=== PATIENT | female | born 1970 | race Caucasian/White ===

== ENCOUNTER 2024-01-21 09:59 | Emergency (ER) | payer BC, SELFPAY ==
[2024-01-21 10:17] VITALS: BP 165/77
--- NOTE | 2024-01-21 10:58 | ED.GENMED ---
History of Present Illness
General
Chief Complaint: Chest Pain
Source: patient
Exam Limitations: none
Time Seen by Provider: 01/21/24 10:43
Travel History
Have you had any contact with someone who has COVID-19?: No
Do you have any symptoms of coronavirus? Fever > 100 degrees, chills, cough, shortness of breath, sore throat, loss of taste or smell, muscle aches, or headache?: No
History of Present Illness
History of Present Illness:
53-year-old female presents complaining of onset of mid back pain and substernal chest pain that started early this morning. Hurts to move and breathe. She denies any shortness of breath. No recent travel or surgery. No fever or cough. No known
injury. Seen initially at the urgent care and sent here for further evaluation.
Past History
Past History
ED Past Medical History: Hypothyroidism (s/p total thyroidectomy)
ED Past Surgical History: Gynecological (tubal ligation) and Other (total thyroidectomy 2 yrs ago)
Social History
Tobacco: Non-smoker
Alcohol: Occasional
Drug: None
Personal:
Living: with family
Employment: Employed
Family History
Family History: Hypertension; Negative Diabetes, Early CAD, CAD or Sudden
Phy Exam
Physical Exam
Physical Exam:
Physical Exam
General: no apparent distress, not acutely ill
Neck: supple. no meningeal signs.
Heart: s1/s2 regular rate and rhythm, no murmur. equal radial pulses.
Lungs: no acute respiratory distress. clear bilaterally
Abdomen: normal bowel sounds
Neuro: alert and oriented. no focal neurological deficits
Skin: no rash
Psychiatric: well kept. interactive and cooperative
Extremities: no edema. no calf tenderness. negative homans. good distal pulses
Scores
Heart Score for Chest Pain Patients
STEMI patient?: No
History: Slightly or Non-Suspicious
ECG: Normal
Age: >45 - <65 years
Risk Factors: 1 or 2 Risk Factors
Troponin: </= Normal Limit
Heart Score for Chest Pain Patients: 2
Heart Score Risk: 2.5% MACE over next 6 weeks
Course
Orders/Labs/Results
Orders:
Orders
01/21/24 10:01
Electrocardiogram (*1) Urgent
Reason for Study: Chest Pain
EKG- Treatment ONCE
01/21/24 11:30
Complete Blood Count/With Diff Urgent
Comprehensive Metabolic Panel Urgent
D-Dimer Urgent
Lipase Urgent
Troponin I Urgent
01/21/24 11:58
CR Chest - 2 Views Urgent
Comment:
Reason For Exam: chest pain
Abnormal Lab Results
01/21/24
11:30
MCHC 32.5 L g/dL
(33.0-37.0)
RDW 16.3 H %
(11.5-14.5)
MPV 12.4 H fL
(7.4-10.4)
Absolute Lymphs (auto) 0.9 L 10^3/uL
(1.2-3.4)
Lymphocytes % 18.6 L %
(20.5-51.1)
Chloride 108 H mmol/L
(98-107)
01/21/24 11:30
01/21/24 11:30
Vital Signs
Initial and Last Documented VS:
Initial Vital Signs
Temp Pulse Resp BP Pulse Ox
98.1 F 74 18 165/77 97
01/21/24 10:17 01/21/24 10:17 01/21/24 10:17 01/21/24 10:17 01/21/24 10:17
Last Documented Vital Signs
Temp Pulse Resp BP Pulse Ox
98.1 F 74 18 165/77 97
01/21/24 10:17 01/21/24 10:17 01/21/24 10:17 01/21/24 10:17 01/21/24 10:17
MDM/Problems Addressed
Differential Diagnosis Includes:
Back and chest pain. This is reproducible with motion but also hurts to breathe. Consider musculoskeletal chest wall pain versus PE versus ACS. EKG through triage shows sinus rhythm without ischemic changes. Will check D-dimer labs including
troponin and lipase. Will image based on D-dimer results.
*Critical Care Note
Total Time (30-74mins, 75-104mins- exclusive of procedures): Not Applicable
Update Note
Update Note:
D-dimer and troponin both undetectable. Lipase normal chest x-ray clear. Patient's pain is reproducible with motion. Suspect likely chest wall discomfort. Will refer to cardiology for further evaluation. Stable for discharge
ED Attending Note
-
Portions of this chart may have been created with voice recognition software.� Occasional wrong word or��sound alike� substitutions may have occurred due to the inherent limitations of voice recognition software.
Discharge Plan
Departure
Patient Disposition: Home (Routine Discharge)
Date of Disposition: 01/21/24
Time of Disposition: 13:30
Patient with high blood pressure during this ER visit?: No
Discharge Problem:
Chest pain
Instructions: Chest Pain DCA Follow Up
Referrals:
Obie Bailon MD [Family Provider] -
Activity Restrictions/Additional Instructions:
Continue with ibuprofen or Tylenol for pain. Return for worsening symptoms otherwise follow-up with family doctor and/or general laborer
Interventions
Interventions:
*Risk Screen - Suicide Last Done: 01/21/24 10:20
*General Assessment Last Done: 01/21/24 10:20
*Neglect/Abuse Screening Last Done: 01/21/24 10:20
*ED COVID-19 Vaccine History Last Done: 01/21/24 11:28
ED- Cardiac Assessment Last Done: 01/21/24 11:37
[2024-01-21 11:35] VITALS: BP 129/79
[2024-01-21 11:55] LABS: D-Dimer < 0.27 ug/mlFEU (0.00-0.50)
[2024-01-21 11:59] LABS: ALT (SGPT) 23 U/L (0-35); AST (SGOT) 27 U/L (14-36); Albumin 4.6 g/dl (3.5-5.0); Alkaline Phosphatase 113 U/L (38-126); Blood Urea Nitrogen 13 mg/dl (7-17); Calcium 9.3 mg/dl (8.4-10.2); Carbon Dioxide 27 mmol/L (22-30); Chloride 108 mmol/L (98-107); Glucose 99 mg/dl (70-99); Lipase 71 U/L (23-300); Potassium 3.8 mmol/L (3.5-5.1); Sodium 141 mmol/L (135-145); Total Bilirubin 0.9 mg/dl (0.2-1.3); Total Protein 7.3 g/dl (6.3-8.2); eGFR > 60.00
[2024-01-21 12:00] VITALS: BP 128/70
[2024-01-21 12:00] LABS: % Basophils 0.2 % (0-2); % Eosinophils 2.2 % (0-6); % Immature Granulocytes 0.2 % (0-0.5); % Lymphocytes 18.6 % (20.5-51.1); % Monocytes 5.3 % (1.7-9.3); % Neutrophils 73.5 % (42.2-75.2); Absolute Eosinophils 0.1 10^3/uL (0-0.7); Absolute Lymphocytes 0.9 10^3/uL (1.2-3.4); Absolute Monocytes 0.3 10^3/uL (0.1-0.6); Absolute Neutrophils 3.6 10^3/uL (1.4-6.5); Mean Corp Hgb Conc. 32.5 g/dL (33.0-37.0); Mean Corpuscular Hgb 27.1 pg (27.0-31.0); Mean Corpuscular Volume 83.5 fL (81.0-99.0); Mean Platelet Volume 12.4 fL (7.4-10.4); Nucleated Red Blood Cells % 0 %; Platelet Count 180 10^3/uL (130-400); Red Blood Cell Count 4.79 10^6/uL (4.20-5.40); Red Cell Dist. Width 16.3 % (11.5-14.5); White Blood Cell Count 4.9 10^3/uL (4.8-10.8)
[2024-01-21 12:05] LABS: Troponin I < 0.012 ng/ml
[2024-01-21 13:08] VITALS: BP 142/81
== END 2024-01-21 13:49 | disposition home or self-care (01) ==
LOC: EMR 09:59
PROVIDERS: Physician Assistant; EMERGENCY PHYSICIAN Emergency Medicine; FAMILY PHYSICIAN Family Medicine
DX: R07.89 Other chest pain (principal); Z82.49 Family history of ischemic heart disease and other diseases of the circulatory system; Z98.51 Tubal ligation status
CPT/HCPCS: 99283; 71046; 80053; 83690; 84484; 85025; 85379; 93005

== ENCOUNTER → 2024-05-24 07:54 | Outpatient (REF) | payer BC, SELFPAY | LOC: WDC 07:54 | PROVIDERS: ATTENDING PHYSICIAN Obstetrics & Gynecology; FAMILY PHYSICIAN Nurse Practitioner | DX: Z12.31 Encounter for screening mammogram for malignant neoplasm of breast (principal) | CPT/HCPCS: 77063; 77067 ==

== ENCOUNTER → 2024-07-15 14:44 | Outpatient (REF) | payer BC, SELFPAY | LOC: HWRAD 14:44 | PROVIDERS: ATTENDING PHYSICIAN Obstetrics & Gynecology; FAMILY PHYSICIAN Nurse Practitioner | DX: R10.2 Pelvic and perineal pain (principal) | CPT/HCPCS: 76830; 76856 ==

== ENCOUNTER → 2024-08-02 07:45 | Outpatient (REF) | payer BC, SELFPAY | LOC: HWRAD 07:45 | PROVIDERS: ATTENDING PHYSICIAN Nurse Practitioner | DX: R10.32 Left lower quadrant pain (principal) | CPT/HCPCS: 74177; Q9967 ==

== ENCOUNTER → 2024-11-02 10:49 | Outpatient (REF) | payer BC, SELFPAY | LOC: RAD 10:49 | PROVIDERS: ATTENDING PHYSICIAN Nurse Practitioner | DX: R10.11 Right upper quadrant pain (principal) | CPT/HCPCS: 76700 ==

== ENCOUNTER 2024-12-24 06:17 | Day surgery (SDC) | payer BC, SELFPAY | END 2024-12-24 13:56 | disposition home or self-care (01) | LOC: GI 06:17 | PROVIDERS: ATTENDING PHYSICIAN Internal Medicine | DX: R10.84 Generalized abdominal pain (principal); R19.4 Change in bowel habit; K31.89 Other diseases of stomach and duodenum; K22.89 Other specified disease of esophagus | CPT/HCPCS: 45380; 43239; 88305; 88342 ==

== ENCOUNTER → 2024-12-28 07:41 | Outpatient (REF) | payer BC, SELFPAY | LOC: RAD 07:41 | PROVIDERS: ATTENDING PHYSICIAN Internal Medicine; FAMILY PHYSICIAN Nurse Practitioner | DX: R10.33 Periumbilical pain (principal) | CPT/HCPCS: 78227; A9537; J2805 ==

== ENCOUNTER 2025-05-30 06:25 | Day surgery (SDC) | payer BC, SELFPAY ==
[2025-05-18 13:26] VITALS: BMI 27.9
--- NOTE | 2025-05-18 16:08 | PTCARENOTE ---
Abnormal ECG done 05/18/[address] Jean, no further interventions requested.
[2025-05-30] VITALS (8 sets, daily range): BP systolic 105–145; BP diastolic 59–81; BMI 27.9
[2025-05-30] MEDS: TYLENOL 1000 MG PO (10:48)
[2025-05-30] MEDS: TRANSDERM-SCOP 1 PATCH TRANSDERM (10:51)
[2025-05-30] MEDS: NORMOSOL-R/PLASMALYTE-A 1000 IV (11:02)
--- NOTE | 2025-05-30 13:38 | HP.FOC2 ---
Focused History & Physical
Chief Complaint
HPI:
Chief Complaint: Biliary dyskinesia
HPI / Indication for Planned Procedure: Patient is a 54-year-old female recently seen in outpatient surgical evaluation secondary to a history of recurrent episodes of biliary colic like pain. He has been triggered by alcohol and fatty food intake.
Due to persistent symptoms despite dietary changes she presents today for cholecystectomy.
Relevant Past Medical History: Other (History of thyroid cancer, hypothyroid, anemia)
Relevant Social History: Negative
Relevant Family History: Negative
Relevant Past Surgical History: Positive for (Thyroidectomy, tubal ligation)
Review of Systems
Review of Pertinent Systems: All Systems Negative
Medication
See Medication form for detailed medications: Yes
Medication List (including Herbals & OTC):
calcium 600 mg (as carbonate)-vitamin D3 5 mcg (200 unit) tablet 1 tab PO DAILY 05/23/25
ibuprofen 200 mg tablet 400 mg PO Q6H PRN pain 05/23/25
levothyroxine 137 mcg tablet 68.5 mcg PO .2 DAYS A WEEK 05/23/25
levothyroxine 137 mcg tablet 137 mcg PO .4 DAYS A WEEK 05/23/25
Medications Reviewed: Yes
Allergies and Reactions
Patient has Allergies: Yes
Noted Allergies and Reactions:
Allergy/AdvReac Type Severity Reaction Status Date / Time
Penicillins Allergy Rash Verified 05/30/25 10:37
Pertinent Physical Exam
All Other Systems: Negative
Head/Neck: Normal
Lungs: Normal
Heart: Normal
Abdomen: Normal
Extremities: Normal
Neurological: Normal
Diagnosis / Assessment
54-year-old female presenting for scheduled cholecystectomy for management of suspected biliary dyskinesia/functional disorder of the gallbladder
Plan / Procedure
Laparoscopic cholecystectomy with cholangiogram
Anesthesia/Sedation to be done by Anesthesia Provider: Yes
--- NOTE | 2025-05-30 13:40 | W.SUR.PREOP ---
Pre-Operative Surgical Note
-
I have examined this patient prior to the performance of the scheduled procedure.
The patient's condition is unchanged from the time of the current History and
Physical and the patient is able to undergo the scheduled procedure.
--- NOTE | 2025-05-30 15:19 | W.IMMPOSTOP ---
Addendum entered and electronically signed by Santos Aragon MD 05/30/25 15:30:
#[id number]
Original Note:
Surgical Immed Post Op Note
-
Primary Surgeon: Santos Aragon MD
Assisting Surgeon: Odalis Bustillo
Pre-op Diagnosis: Biliary dyskinesia
Post-op Diagnosis: Biliary dyskinesia
Procedure Performed: Laparoscopic cholecystectomy with cholangiogram
Anesthesia Type: GETA +0.25% Marcaine
Specimen / Cultures: Gallbladder
Estimated Blood Loss: 4 mL
Complications: None immediate
Operative Findings: Physiologically distended gallbladder. Normal intraoperative cholangiogram. Cystic duct and artery individually identified and controlled with clips. Gallbladder removed off liver bed intact and extracted at epigastric 12 mm
trocar site.
[2025-05-30] MEDS: TYLENOL 650 MG PO (16:27)
== END 2025-05-30 16:45 | disposition home or self-care (01) ==
LOC: SDS 06:25
PROVIDERS: ATTENDING PHYSICIAN Surgery; FAMILY PHYSICIAN Nurse Practitioner
DX: K82.8 Other specified diseases of gallbladder (principal)
CPT/HCPCS: 47563; 36415; 74300; 76000; 88304; 93005; A4300

== ENCOUNTER → 2025-06-13 16:39 | Outpatient (REF) | payer BC, SELFPAY | LOC: WDC 16:39 | PROVIDERS: ATTENDING PHYSICIAN Nurse Practitioner | DX: Z12.31 Encounter for screening mammogram for malignant neoplasm of breast (principal) | CPT/HCPCS: 77063; 77067 ==

== ENCOUNTER → 2025-09-23 13:02 | Outpatient (REF) | payer BC, SELFPAY | LOC: HWRAD 13:02 | PROVIDERS: ATTENDING PHYSICIAN Obstetrics & Gynecology; FAMILY PHYSICIAN Nurse Practitioner | DX: R10.32 Left lower quadrant pain (principal) | CPT/HCPCS: 76830; 76856 ==